=== PATIENT | female | born 1970 | race Caucasian/White ===

== ENCOUNTER 2021-10-05 17:28 | Emergency (ER) | payer OTHER ==
[2021-10-05 17:36] VITALS: BP 117/79; PULSE 74; TEMP 98.2; BMI 32.0
[2021-10-05] MEDS ORDERED: IBUPROFEN 600 MG TABLET (FP) PO ONE ×2 (18:23→18:26)
== END 2021-10-05 18:39 | disposition home or self-care (01) ==
LOC: JERFT 17:28
DX: M25.561 Pain in right knee (principal)
CPT/HCPCS: 99283-25

== ENCOUNTER 2022-05-22 04:13 | Day surgery (SDC) | payer OTHER ==
[2022-05-14 16:15] VITALS: BMI 31.3
[~2022-05-22 04:13] MED LIST: BUPIVACAINE HCL/PF 0.75% 10 ML VIAL NR ONE; LIDOCAINE HCL 1% PRESERVATIVE FREE - 30ML VIAL IJ ONE
[2022-05-22] MEDS ORDERED: BUPIVACAINE HCL/PF 0.75% 10 ML VIAL ONE (07:25)
[2022-05-22] MEDS ORDERED: LIDOCAINE HCL/PF 1% SDV 5ML VIAL ONE (07:25)
[2022-05-22] MEDS ORDERED: LIDOCAINE HCL 1% PRESERVATIVE FREE - 30ML VIAL IJ ONE (11:14)
[2022-05-22] MEDS ORDERED: BUPIVACAINE HCL/PF 0.75% 10 ML VIAL NR ONE (11:22)
[2022-05-22 12:50] VITALS: BP 112/75; PULSE 63; RESP 18; TEMP 98.7
== END 2022-05-22 11:56 | disposition home or self-care (01) ==
LOC: JASU-SURG 04:13
PROVIDERS: ATTEND Pain Medicine Pain Medicine
PROC: BR16YZZ Fluoroscopy of Lumbar Facet Joint(s) using Other Contrast (ICD-10-PCS; 2022-05-22)
PROC: 3E0T3BZ Introduction of Anesthetic Agent into Peripheral Nerves and Plexi, Percutaneous Approach (ICD-10-PCS; principal; 2022-05-22 11:00)
DX: M47.816 Spondylosis without myelopathy or radiculopathy, lumbar region (principal)
CPT/HCPCS: 76000-TC-FY

== ENCOUNTER 2023-03-11 05:11 | Day surgery (SDC) | payer OTHER ==
[2023-03-10 09:45] VITALS: BMI 32.3
[2023-03-11 12:34] VITALS: RESP 18; TEMP 97.7
[2023-03-11 13:13] VITALS: BP 116/60; PULSE 54
== END 2023-03-11 13:35 | disposition home or self-care (01) ==
LOC: JASU-ENDO 05:11
PROVIDERS: ATTEND Internal Medicine Gastroenterology
PROC: 0DJD8ZZ Inspection of Lower Intestinal Tract, Via Natural or Artificial Opening Endoscopic (ICD-10-PCS; principal; 2023-03-11 12:15)
DX: Z12.11 Encounter for screening for malignant neoplasm of colon (principal); K64.8 Other hemorrhoids; K59.89 Other specified functional intestinal disorders

== ENCOUNTER 2023-04-01 04:47 | Day surgery (SDC) | payer OTHER ==
[2023-03-30 10:07] VITALS: BMI 33.3
[2023-04-01 11:45] VITALS: TEMP 98
[2023-04-01 12:04] VITALS: RESP 20
[2023-04-01 12:12] VITALS: BP 105/67; PULSE 73
== END 2023-04-01 12:34 | disposition home or self-care (01) ==
LOC: JASU-ENDO 04:47
PROVIDERS: ATTEND Internal Medicine Gastroenterology
PROC: 0DB78ZX Excision of Stomach, Pylorus, Via Natural or Artificial Opening Endoscopic, Diagnostic (ICD-10-PCS; 2023-04-01)
PROC: 0DB68ZX Excision of Stomach, Via Natural or Artificial Opening Endoscopic, Diagnostic (ICD-10-PCS; 2023-04-01)
PROC: 0DB48ZX Excision of Esophagogastric Junction, Via Natural or Artificial Opening Endoscopic, Diagnostic (ICD-10-PCS; principal; 2023-04-01 12:15)
DX: K21.00 Gastro-esophageal reflux disease with esophagitis, without bleeding (principal); K29.50 Unspecified chronic gastritis without bleeding; K44.9 Diaphragmatic hernia without obstruction or gangrene; Z87.19 Personal history of other diseases of the digestive system
CPT/HCPCS: 88305-TC; 88342-TC

== ENCOUNTER 2024-02-11 04:40 | Day surgery (SDC) | payer OTHER ==
[2024-02-09 11:06] VITALS: BMI 31.2
[2024-02-11] MEDS ORDERED: DEXAMETHASONE SOD PHOSPHATE 10 MG/1 ML VIAL ONE (07:27)
[2024-02-11] MEDS ORDERED: LIDOCAINE HCL/PF 1% SDV 5ML VIAL ONE (07:27)
[2024-02-11] MEDS ORDERED: BUPIVACAINE HCL/PF 0.75% 10 ML VIAL ONE (08:59)
[2024-02-11] MEDS: LIDO 2%/EPI 1:200000 PRESRVFRE (20 ML SDVIAL) INF ONE ×2 (09:25)
[2024-02-11] MEDS: BUPIVACAINE HCL/PF 0.75% 10 ML VIAL NR ONE ×2 (09:29)
[2024-02-11] MEDS ORDERED: ACETAMINOPHEN 500 MG TABLET (FP) PO PRN (09:30)
[2024-02-11 09:54] VITALS: RESP 18
[2024-02-11 10:22] VITALS: BP 115/76; PULSE 83; TEMP 97.1
== END 2024-02-11 10:20 | disposition home or self-care (01) ==
LOC: JASU-SURG 04:40
PROVIDERS: ATTEND Pain Medicine Pain Medicine
PROC: 3E0T3BZ Introduction of Anesthetic Agent into Peripheral Nerves and Plexi, Percutaneous Approach (ICD-10-PCS; principal; 2024-02-11 09:15)
DX: M47.816 Spondylosis without myelopathy or radiculopathy, lumbar region (principal)
CPT/HCPCS: 76000-TC-FY; J1100

== ENCOUNTER 2024-06-01 08:03 | Day surgery (SDC) | payer OTHER ==
[2024-05-22 17:07] VITALS: BMI 26.4
[2024-06-01] MEDS ORDERED: LIDOCAINE 1%/EPI 1:100000 (20 ML MULTI DOSE VIAL) ONE ×2 (09:18→09:37)
[2024-06-01] MEDS ORDERED: MIDAZOLAM HCL 2 MG/2 ML SINGLE DOSE VIAL ONE (09:46)
[2024-06-01] MEDS ORDERED: PROPOFOL 20 ML ONE (09:50)
[2024-06-01] MEDS ORDERED: ePHEDrine SULFATE 50 MG/1 ML AMPULE ONE (10:19)
[2024-06-01 11:24] VITALS: RESP 18; TEMP 97.2
[2024-06-01 12:11] VITALS: BP 100/62; PULSE 76
== END 2024-06-01 11:30 | disposition home or self-care (01) ==
LOC: FASU 08:03
PROVIDERS: ATTEND Orthopaedic Surgery Sports Medicine
PROC: 01N50ZZ Release Median Nerve, Open Approach (ICD-10-PCS; principal; 2024-06-01 10:00)
DX: G56.02 Carpal tunnel syndrome, left upper limb (principal)

== ENCOUNTER 2024-10-27 07:13 | Day surgery (SDC) | payer OTHER ==
[2024-10-25 14:32] VITALS: BMI 27.3
[2024-10-27 10:25] VITALS: RESP 18
[2024-10-27 11:19] VITALS: BP 103/64; PULSE 64; TEMP 98.8
[2024-10-27] MEDS ORDERED: ACETAMINOPHEN 500 MG TABLET (FP) PO PRN (15:56)
== END 2024-10-27 11:40 | disposition home or self-care (01) ==
LOC: JASU-SURG 07:13
PROVIDERS: ATTEND Pain Medicine Pain Medicine
PROC: 3E0R33Z Introduction of Anti-inflammatory into Spinal Canal, Percutaneous Approach (ICD-10-PCS; principal; 2024-10-27 10:49)
DX: M54.12 Radiculopathy, cervical region (principal)